=== PATIENT | male | born 1950 | race Caucasian/White ===

== ENCOUNTER 2016-12-30 10:52 | Emergency (ER) | payer OTHER ==
[~2016-12-30] VITALS: Ht 180.3 cm; Wt 86.2 kg
[~2016-12-30 10:52] MED LIST: ACETAMINOPHEN325 M1 PO; BACTRIM DS TAB1 EACH; CENTURY TABLET1 EACH PO; CIPROFLOXACIN500 M1 PO; CLOTRIMAZOLE-BE15 GM TOP; COUMADIN 4 MG TA4 M1 PO; COUMADIN 5 MG TA5 M1 PO; CVS SENNA PLUS1 EACH PO; DEBROX; DEBROX OTIC; DUONEB 2.5-0.5 M3 ML INH; FINASTERIDE5 MG PO; FLOMAX0.4 MG PO; KEPPRA 500 MG500 M1 PO; KEPPRA 500 MG500 MG PO; LASIX 20 MG TAB20 MG PO; LOPRESSOR25 PO; MULTIVITAMINS PO; MULTIVITAMINS1 EAC7 PO; OMEPRAZOLE 20 M20 M1; PACERONE 200 M200 M1 PO; PAXIL20 MG PO; PAXIL30 MG PO; QUETIAPINE FUMA25 MG PO; RANITIDINE 150150 M1 PO; RISPERDAL M-TAB2 MG; SANTYL OINTMENT30 G1; SENNA CONCENTR8.6 MG PO; SENNA S TABLET1 EACH PO; SEROQUEL 25 MG25 M1 PO; SEROQUEL 50 MG50 M1 PO; STAVZOR500 MG; TAMSULOSIN HCL0.4 M1 PO; TEARS NATURALE OPHTHALMIC; THERAMINE CAPS1 EACH PO; TRIAMCINOLONE A80 G2; VALPROIC A250 MG/51 PO; VITAMIN B-1100 M1 PO; VITAMIN B1 PO; VITAMIN C120 GM; XALATAN2.5 ML OPHTHALMIC; ZINC CHELATE100 MG; ZONEGRAN 25 MG25 M1 PO; ZONEGRAN100 MG PO; [UNRECOGNIZED DRUG - OTHER]
[2016-12-30 11:24] LABS: URINE BILIRUBIN 1+ (Negative); URINE BLOOD 3+ (Negative); URINE GLUCOSE-RANDOM* NEGATIVE (Negative); URINE KETONES TRACE (Negative); URINE LEUKOCYTES-REFLEX 1+ (Negative); URINE PROTEIN (DIPSTICK) 3+ (Negative)
[2016-12-30 11:29] LABS: ICTOTEST (BILI CONFIRMATORY) Negative (Negative); URINE COLOR BROWN
[2016-12-30 11:30] LABS: AMORPHOUS URATES Moderate /LPF (None Seen); CASTS None Seen /LPF (None Seen); SQUAMOUS None Seen /LPF (0-3); URINE RBC >20 Many /HPF (0-2)
[2016-12-30] MEDS ORDERED: CIPROFLOXACIN500 M1 PO (11:45)
== END 2016-12-30 13:28 | disposition home or self-care (01) ==
LOC: ER 10:52
PROVIDERS: Emergency Medicine
DX: N39.0 Urinary tract infection, site not specified (principal); T83.098A Other mechanical complication of other urinary catheter, initial encounter; I10 Essential (primary) hypertension; E11.9 Type 2 diabetes mellitus without complications; G40.909 Epilepsy, unspecified, not intractable, without status epilepticus; I48.91 Unspecified atrial fibrillation; F20.9 Schizophrenia, unspecified; F17.210 Nicotine dependence, cigarettes, uncomplicated; Z86.73 Personal history of transient ischemic attack (TIA), and cerebral infarction without residual deficits; Z79.01 Long term (current) use of anticoagulants; Z88.0 Allergy status to penicillin; Y84.8 Other medical procedures as the cause of abnormal reaction of the patient, or of later complication, without mention of misadventure at the time of the procedure; Y92.89 Other specified places as the place of occurrence of the external cause

== ENCOUNTER 2018-03-07 11:50 | Emergency (ER) | payer OTHER ==
[~2018-03-07] VITALS: Ht 188 cm; Wt 89.0 kg
[~2018-03-07 11:50] MED LIST changes: +LEVAQUIN 500 M500 M2 PO; +PREDNISONE 10 M10 MG PO
[2018-03-07 13:14] LABS: ABSOLUTE NEUTROPHILS 7.1 thou/uL (1.4-8.2); BASOPHILS 0.6 % (0.0-2.0); EOSINOPHILS 0.1 % (0.0-3.0); HEMATOCRIT 37.1 % (42.0-52.0); HEMOGLOBIN 12.3 gm/dL (14.0-18.0); LYMPHOCYTES 4.9 % (24.0-44.0); MCHC 33.1 g/dL (28.0-37.0); MCV 87.5 fL (80.0-100.0); MONOCYTES 9.2 % (1.0-8.0); PLATELET COUNT 239 thou/uL (150-400); POLYS 85.2 % (36.0-66.0); RBC 4.24 mil/uL (4.50-6.00); RDW 16.1 % (10.5-14.5); WBC 8.3 thou/uL (4.0-11.0)
[2018-03-07 13:23] LABS: CALCIUM 8.9 mg/dL (8.5-10.1); POTASSIUM 3.5 mmol/L (3.5-5.1)
[2018-03-07] MEDS ORDERED: VITAMIN B-1100 M1 PO (13:39)
[2018-03-07 13:56] LABS: URINE BILIRUBIN 1+ (Negative); URINE BLOOD 3+ (Negative); URINE CLARITY CLOUDY; URINE COLOR RED; URINE GLUCOSE-RANDOM* NEGATIVE (Negative); URINE KETONES TRACE (Negative); URINE PROTEIN (DIPSTICK) 3+ (Negative)
[2018-03-07 13:59] LABS: URINE LEUKOCYTES-REFLEX 3+ (Negative); URINE NITRITE-REFLEX POSITIVE (Negative)
[2018-03-07 14:03] LABS: ICTOTEST (BILI CONFIRMATORY) Negative (Negative)
[2018-03-07 14:08] LABS: AMORPHOUS PHOSPHATES Moderate /LPF (None Seen); URINE RBC >20 Many /HPF (0-2); URINE WBC-REFLEX >25 Many /HPF (0-5)
[2018-03-07 14:09] LABS: CASTS None Seen /LPF (None Seen); SQUAMOUS None Seen /LPF (0-3); TRIPLE PHOSPHATE CRYSTALS 4-10 Moderate /LPF (None Seen)
[2018-03-07] MEDS ORDERED: KEFLEX500 M1 PO (14:20)
== END 2018-03-07 17:14 ==
LOC: ER 11:50
PROVIDERS: Student in an Organized Health Care Education/Training Program
DX: T83.518A Infection and inflammatory reaction due to other urinary catheter, initial encounter (principal); N39.0 Urinary tract infection, site not specified; I10 Essential (primary) hypertension; F20.9 Schizophrenia, unspecified; I48.91 Unspecified atrial fibrillation; F17.210 Nicotine dependence, cigarettes, uncomplicated; Z88.0 Allergy status to penicillin